=== PATIENT | male | born 1990 | race Caucasian/White ===

== ENCOUNTER 2022-05-26 10:45 | Emergency (ER) | payer BC ==
[~2022-05-26] VITALS: Ht 182.9 cm; Wt 88.0 kg
[2022-05-26 10:50] VITALS: BP 160/110
[2022-05-26] MEDS ORDERED: TAM75C PO (13:44)
== END 2022-05-26 13:58 | disposition home or self-care (01) ==
LOC: ER 10:46
DX: J10.1 Influenza due to other identified influenza virus with other respiratory manifestations (principal); Z88.1 Allergy status to other antibiotic agents; Z79.899 Other long term (current) drug therapy
CPT/HCPCS: 71045; 87081; 87502; 87503; 87880; 99284